=== PATIENT | male | born 1955 | race Caucasian/White ===

== ENCOUNTER 2021-10-18 10:55 | Emergency (ER) | payer OTHER ==
[2021-10-18] MEDS ORDERED: dilTIAZem 25 MG/5 ML VIAL IVP ONE (11:15)
[2021-10-18] MEDS ORDERED: IV NORMAL SALINE 1,000ML 1,000 ML IV ONE (11:15)
[2021-10-18 11:18] LABS: BASO % 0 % (0-3); EOS % 0 % (0-3); HEMOGLOBIN 12.6 g/dL (13.0-17.5); LYMPH # 1.2 x10^3/uL (1.0-4.8); LYMPH % 9 % (24-48); MEAN CORPUSCULAR HEMOGLOBIN 29 pg (25-35); MEAN CORPUSCULAR HGB CONC 33 g/dL (31-37); MEAN CORPUSCULAR VOLUME 89 fL (79-100); MONO # 0.6 x10^3/uL (0.0-1.1); MONO % 5 % (0-9); NEUT # 11.9 x10^3uL (1.8-7.7); NEUT % 87 % (31-73); PLATELET COUNT 173 x10^3/uL (140-400); RED BLOOD COUNT 4.28 x10^6/uL (4.30-5.70); RED CELL DISTRIBUTION WIDTH 14.5 % (11.5-14.5); WHITE BLOOD COUNT 13.7 x10^3/uL (4.0-11.0)
[2021-10-18 11:30] LABS: CALCIUM 7.5 mg/dL (8.5-10.1); CREATININE 1.8 mg/dL (0.7-1.3); GFR 37.7; POTASSIUM 3.2 mmol/L (3.5-5.1)
[2021-10-18] MEDS ORDERED: CONTRAST GIVEN. MC PRN (11:30)
[2021-10-18] MEDS ORDERED: IOHEXOL 350 MG/ML 100 ML VIAL. IV ONE (11:30)
--- NOTE | 2021-10-18 11:32 | PHYS DOC ---
General Adult EDM: Chief Complaint: ALTERED MENTAL STATUS HPI: HPI: 66-year-old male presents via EMS with altered mental status. Most of the report comes from EMS. The patient was to be altered last night when family checked on him. He lives at home alone. When they checked on him again this morning he was not better so they called an ambulance and had him brought to the hospital. The patient is able to speak. He tells me he is having difficulty finding words. He is able to follow commands and tell me his name. He is alert to person, time, place and situation. Patient denies any area of pain. He tells me he has high blood pressure but is not able to tell me what his other medical problems are. EMS reported the patient had a cough. No reported fever. Review of Systems: Review of Systems: Constitutional: Denies fever or chills Eyes: Denies change in visual acuity HENT: Denies nasal congestion or sore throat Respiratory: Denies cough or shortness of breath Cardiovascular: Denies chest pain or edema GI: Denies abdominal pain, nausea, vomiting, bloody stools or diarrhea : Denies dysuria Musculoskeletal: Denies back pain or joint pain Integument: Denies rash Neurologic: AMS. Difficulty finding words. Denies headache, focal weakness or sensory changes Endocrine: Denies polyuria or polydipsia Lymphatic: Denies swollen glands Psychiatric: Denies depression or anxiety Physical Exam: PE: Constitutional: Well developed, well nourished, unkept, no acute distress, non- toxic appearance. [] HENT: Normocephalic, atraumatic, bilateral external ears normal, oropharynx moist, no oral exudates, nose normal. [] Eyes: PERRLA, EOMI, conjunctiva normal, no discharge. [] Neck: Normal range of motion, no tenderness, supple, no stridor. [] Cardiovascular: Heart rate 150, irregular rhythm, no murmur [] Lungs & Thorax: Bilateral breath sounds clear to auscultation [] Abdomen: Bowel sounds normal, soft, no tenderness, no masses, no pulsatile masses. [] Skin: Warm, dry, no erythema, no rash. [] Back: No tenderness, no CVA tenderness. [] Extremities: No tenderness, no cyanosis, no clubbing, ROM intact, 3+ pitting edema of bilateral feet. [] Neurologic: Alert and oriented X 3, normal motor function, normal sensory function, no focal deficits noted. [] Psychologic: Affect normal, judgement normal, mood normal. [] EKG: EKG: [] Radiology/Procedures: Radiology/Procedures: [] Heart Score: C/O Chest Pain: No Risk Factors: Risk Factors: DM, Current or recent (<one month) smoker, HTN, HLP, family history of CAD, obesity. Risk Scores: Score 0 - 3: 2.5% MACE over next 6 weeks - Discharge Home Score 4 - 6: 20.3% MACE over next 6 weeks - Admit for Clinical Observation Score 7 - 10: 72.7% MACE over next 6 weeks - Early Invasive Strategies Course & Med Decision Making: Course & Med Decision Making Pertinent Labs and Imaging studies reviewed. (See chart for details) The patient denies any pain, but he has abrasions of the bilateral knees and they appear tender to palpation. I'm concerned he has at least had 1 fall. We will x-ray these as well as his CT studies. The patient has an elevated troponin. Given his heart rate of 150 this is not surprising. I do not see any ST elevation on EKG. He also does not plan chest pain. His chest x-ray is suggestive of bilateral pneumonia. He is positive for COVID-19. 20 mg of Cardizem did slow the patient's rate to 105. It increased afterwards so I started a Cardizem drip. CT angiogram shows occlusion of the M2 branch on the left and the right [employer] and possibly the left [employer]. This is likely due to shower emboli from his atrial fibrillation. I will start him on heparin drip. I have consulted Dr. Gillespie at [facility] and she looked at the images herself. She determined that the patient stroke is now complete and there would be no benefit to thrombolytic retrieval therapy. The patient is certainly outside the window for TPA. I spoke with the transfer center for [facility] and the patient has been accepted for transfer to [facility]. Dr. Morse has accepted the patient. [] Regulo Disclaimer: Regulo Disclaimer: This electronic medical record was generated, in whole or in part, using a voice recognition dictation system. NIH Stroke Scale: NIH Stroke Scale Response (Comments) Value Level of Consciousness: 0 Alert/Responsive 0 LOC Questions: 0 Answers both correctly 0 LOC Commands: 0 Performs both tasks 0 Best Gaze: 0 Normal 0 Visual: 0 No visual loss 0 Facial Palsy: 0 Normal, symmetrical 0 Motor - Left Arm 0 No drift 0 Motor - Right Arm 1 Drifts but can hold 1 Motor - Left Leg 2 Some effort 2 Motor: Right Leg 2 Some effort 2 Best Language: 0 Normal 0 Dysathria: 1 Mild to moderate 1 Extinction and Inattention: 0 Normal 0 Total 6 Departure Departure: Impression: Primary Impression: AMS (altered mental status) Additional Impressions: Pneumonia due to COVID-19 virus Stroke Atrial fibrillation, new onset Disposition: 02 SHORT TERM HOSPITAL Condition: GUARDED Referrals: ADAMS BANGURA MD (PCP) PHILIPPE MONTERO DO Oct 18, 2021 11:32
[2021-10-18 11:35] LABS: ALBUMIN 2.5 g/dL (3.4-5.0); ALBUMIN/GLOBULIN RATIO 0.8 (1.0-1.7); TOTAL BILIRUBIN 0.6 mg/dL (0.2-1.0); TOTAL PROTEIN 5.7 g/dL (6.4-8.2)
[2021-10-18 12:07] LABS: INFLUENZA A PATIENT NEGATIVE (NEGATIVE); INFLUENZA B PATIENT NEGATIVE (NEGATIVE)
--- NOTE | 2021-10-18 12:16 | RAD ---
EXAM: Chest, single view. HISTORY: Altered mental status. COMPARISON: None. FINDINGS: A frontal view of the chest is obtained. There is diffuse interstitial infiltrate with susp ected partial left mid lung consolidation. The heart is normal in size. There is no pleural effusion or pneumothorax. IMPRESSION: Suspected diffuse interstitial infiltrate with partial left mid lung consolidation. Follo w-up to confirm resolution. Electronically signed by: Lisbet Carpenter MD (10/18/2021 12:13 PM) [facility]
--- NOTE | 2021-10-18 12:20 | RAD ---
EXAM: Right knee, 3 views. HISTORY: Fall. COMPARISON: None. FINDINGS: 3 views of the right knee are obtained. There is no fracture, dislocation or subluxation. T here is mild medial compartment spurring. There is enthesopathy along the patella. IMPRESSION: No acute osseous finding. Mild osteoarthritis. Electronically signed by: Lisbet Carpenter MD (10/18/2021 12:18 PM) [facility]
[2021-10-18] MEDS ORDERED: dilTIAZem VIAL 125 MG in IV NORMAL SALINE 100ML 100 ML IV PRN (12:45)
[2021-10-18] MEDS ORDERED: AZITHROMYCIN 500 MG in IV NORMAL SALINE 250ML 250 ML IV ONE (12:45)
[2021-10-18] MEDS ORDERED: DEXAMETHASONE SOD PHOS 10 MG/ML VIAL. IVP ONE (12:45)
--- NOTE | 2021-10-18 12:56 | RAD ---
STUDY: CT of the head without contrast and angiography of the head and neck INDICATION: Altered mental status, dysphasia COMPARISON: None TECHNIQUE: Noncontrast axial CT of the was performed. Axial CT imaging of the head and neck utilizing angiography protocol and performed after the intravenous administration of 100 mL Omnipaque 350 cont rast. Multiplanar reformats and 3D MIP acquisitions were obtained. Encountered areas of stenosis are measured per NASCET criteria. One or more of the following individualized dose reduction techniques were utilized for this examinat ion: 1. Automated exposure control 2. Adjustment of the mA and/or kV according to patient size 3. Use of iterative reconstruction technique. FINDINGS: CT HEAD: There is an area of hypoattenuation with loss of tovar-white matter differentiation in the left tempor al lobe suspicious for acute or subacute infarct. Additional focal area of hypoattenuation involving the anterior body of the left caudate lobe. Patchy white matter hypoattenuation elsewhere. No intrare nal hemorrhage. There is moderate volume loss. The skull is intact. Paranasal sinuses and mastoid air cells are clear. Globes and orbits are intact. CTA NECK: Arch/Proximal Great Vessels: Proximal great vessels are obscured by streak artifact. Carotid Bifurcation/Cervical ICA: The common, internal, and external carotid arteries are patent. Mil d calcified atherosclerosis in the carotid bifurcations without significant narrowing. Vertebral Arteries: Vertebral arteries are not well visualized proximally, which may be due to phase of contrast and artifact. Distally the cervical vertebral arteries are normal in caliber and patent. CTA HEAD: Posterior Circulation: Intradural vertebral arteries, basilar artery, superior cerebellar arteries ar e patent. There is a cut off appearance of the P1 segment of the right posterior cerebral artery susp icious for occlusion. The left posterior cerebral artery is small and not well visualized distally ma y also be occluded. Anterior Circulation: Mild narrowing of the supraclinoid internal carotid arteries due to calcificati ons. M1 segments the middle cerebral arteries are patent. An inferior branch of the M2 segment of the left middle cerebral artery is not visualized, likely occluded. The anterior cerebral arteries are p atent. Veins: Poorly visualized due to phase of contrast. MISCELLANEOUS: Patchy groundglass opacities in the upper lobes. IMPRESSION: 1. Acute or subacute infarct in the left temporal lobe. 2. Occlusion of an inferior M2 branch of the left middle cerebral artery. 3. Occlusion of the P1 segment of the right posterior cerebral artery. 4. Possible occlusion of the left posterior cerebral artery distally. 5. Great vessel origins are obscured by artifact. Proximal cervical vertebral arteries are not well v isualized, which may be technical due to suboptimal contrast bolus and artifact. 6. Patchy ground glass opacities in the lungs suspicious for infection. FOR INTERNAL CODING PURPOSES Critical result: Findings discussed with PHILIPPE MONTERO DO at 10/18/2021 12:36 PM. RESULT CODE: (C) 1. Electronically signed by: Nanci Laureano MD (10/18/2021 12:54 PM) [id number]
[2021-10-18] MEDS ORDERED: HEPARIN 25,000UTS/250ML PREMIX 250 ML IV PRN (13:00)
[2021-10-18] MEDS ORDERED: HEPARIN for IV BOLUS 10,000 UNIT/10 ML VIAL. IV ONE (13:00)
[2021-10-18] MEDS ORDERED: HEPARIN for IV BOLUS 10,000 UNIT/10 ML VIAL. IV PRN (13:00)
--- NOTE | 2021-10-18 13:18 | EKG ---
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
[2021-10-18] MEDS ORDERED: IV NORMAL SALINE 250ML 250 ML ONE (13:46)
[2021-10-18] MEDS ORDERED: AZITHROMYCIN 500 MG VIAL. IV ONE (13:46)
[2021-10-18] MEDS ORDERED: cefTRIAXone SODIUM 1 GM VIAL ONE (13:46)
[2021-10-18] MEDS ORDERED: IV NORMAL SALINE 50ML 50 ML ONE (13:46)
[2021-10-18 14:20] LABS: BACTERIA,URINE 0 /HPF (0-FEW); BILIRUBIN,URINE NEG (NEG); CLARITY,URINE CLEAR; COLOR,URINE YELLOW; GLUCOSE,URINE NEG (NEG); NITRITE,URINE NEG (NEG); SQUAMOUS EPITHELIAL CELL,UR OCC /LPF; UROBILINOGEN,URINE 0.2 mg/dL (0.2 mg/dL); WBC,URINE 0 /HPF (0-4)
[2021-10-18 14:21] LABS: GRANULAR CASTS,URINE MOD /HPF
[2021-10-18 16:30] VITALS: BP 161/71
[2021-10-19] MEDS ORDERED: DESV50TA12 PO (14:09)
[2021-10-19] MEDS ORDERED: CLON0.5T4 PO (14:09)
== END 2021-10-18 17:08 | disposition short-term general hospital (02) ==
LOC: ER 10:55
DX: U07.1 COVID-19 (principal); J12.82 Pneumonia due to coronavirus disease 2019; I63.9 Cerebral infarction, unspecified; I48.91 Unspecified atrial fibrillation
CPT/HCPCS: 36415; 70450; 70496; 70498; 71045; 73562; 80053; 81001; 84484; 85025; 85610; 85730; 87428; 93005; 96361; 96365; 96366; 96368; 96376; 99285; J0456; J0696; J1100; J3490; J7030; J7050